=== PATIENT | female | born 2000 | race Hispanic/Latino ===

== ENCOUNTER 2018-02-04 15:50 | Emergency (ER) | payer BC, OTHER ==
[2018-02-04] MEDS ORDERED: LIDOCAINE JELLY 2%- 5 ML TUBE ONE (16:56)
[2018-02-04] MEDS ORDERED: LIDOCAINE 1% 20 ML MDV ONE (16:56)
--- NOTE | 2018-02-04 18:20 | EDPHYS ---
Physician Documentation [facility] Name: Camille Mars Age: 17 yrs Sex: Female : 2000 Arrival Date: 02/04/2018 Time: 15:53 Bed 18 Private MD: Darleen Vanegas L ED Physician Eugenio Marrero HPI: 02/04 18:17 This 17 yrs old Female presents to ER via Ambulatory with complaints of NEEDLE snw IN FINGER. 18:17 The patient or guardian reports a puncture wound, from a needle. The complaints affect snw the dorsal aspect of distal phalanx of left index finger. Context: The problem was sustained at home, resulted from sewing. Onset: The symptoms/episode began/occurred suddenly, just prior to arrival. Associated signs and symptoms: The patient has no apparent associated signs or symptoms. Severity of symptoms: At their worst the symptoms were moderate. The patient has not experienced similar symptoms in the past. 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 - Social history:: Smoking status: Patient/guardian denies using tobacco. - Ebola Screening: : No symptoms or risks identified at this time. ROS: 18:17 Constitutional: Negative for fever, chills, and weight loss, Eyes: Negative for injury, snw pain, redness, and discharge, ENT: Negative for injury, pain, and discharge, Neck: Negative for injury, pain, and swelling, Cardiovascular: Negative for chest pain, palpitations, and edema, Respiratory: Negative for shortness of breath, cough, wheezing, and pleuritic chest pain, Abdomen/GI: Negative for abdominal pain, nausea, vomiting, diarrhea, and constipation, Back: Negative for injury and pain, : Negative for injury, bleeding, discharge, and swelling, MS/Extremity: Negative for injury and deformity, Neuro: Negative for headache, weakness, numbness, tingling, and seizure. 18:17 Skin: Positive for puncture, of the dorsal aspect of distal phalanx of left index finger. Exam: 18:16 Constitutional: This is a well developed, well nourished patient who is awake, alert, snw and in no acute distress. Head/Face: Normocephalic, atraumatic. Eyes: Pupils equal round and reactive to light, extra-ocular motions intact. Lids and lashes normal. Conjunctiva and sclera are non-icteric and not injected. Cornea within normal limits. Periorbital areas with no swelling, redness, or edema. ENT: Nares patent. No nasal discharge, no septal abnormalities noted. Tympanic membranes are normal and external auditory canals are clear. Oropharynx with no redness, swelling, or masses, exudates, or evidence of obstruction, uvula midline. Mucous membranes moist. Neck: Trachea midline, no thyromegaly or masses palpated, and no cervical lymphadenopathy. Supple, full range of motion without nuchal rigidity, or vertebral point tenderness. No Meningismus. Chest/axilla: Normal chest wall appearance and motion. Nontender with no deformity. No lesions are appreciated. Cardiovascular: Regular rate and rhythm with a normal S1 and S2. No gallops, murmurs, or rubs. Normal PMI, no JVD. No pulse deficits. Respiratory: Lungs have equal breath sounds bilaterally, clear to auscultation and percussion. No rales, rhonchi or wheezes noted. No increased work of breathing, no retractions or nasal flaring. 18:16 Back: No spinal tenderness. No costovertebral tenderness. Full range of motion. MS/ Extremity: Pulses equal, no cyanosis. Neurovascular intact. Full, normal range of motion. Neuro: Awake and alert, GCS 15, oriented to person, place, time, and situation. Cranial nerves II-XII grossly intact. Motor strength 5/5 in all extremities. Sensory grossly intact. Cerebellar exam normal. Normal gait. 18:16 Abdomen/GI: Inspection: gravid appearance, is noted, Bowel sounds: normal. 18:16 Skin: Appearance: normal except for affected area, injury, puncture(s), that are deep, of the dorsal aspect of distal phalanx of left index finger, + foreign body. Vital Signs: 16:03 BP 126 / 79; Pulse 96; Resp 16; Temp 98.2; Pulse Ox 99% on R/A; Weight 77.11 kg; Height aj 5 ft. 6 in. (167.64 cm); 18:00 BP 122 / 76; Pulse 88; Resp 16; Pulse Ox 100% on R/A; hb 16:03 Body Mass Index 27.44 (77.11 kg, 167.64 cm) aj Procedures: 18:14 Foreign Body Removal: sewing needle, from the left dorsal aspect of distal phalanx of snw left index finger, by using a hemostat, Dressinx4s were used to dress the wound, The patient tolerated the removal well, x-ray without fb finding post removal, US per Dr. Marrero without foreign body finding. MDM: 16:16 Patient medically screened. snw 19:09 Data reviewed: vital signs, nurses notes. Data interpreted: Pulse oximetry: on room air snw is 100 %. Interpretation: normal. Counseling: I had a detailed discussion with the patient and/or guardian regarding: the historical points, exam findings, and any diagnostic results supporting the discharge/admit diagnosis, radiology results, the need for outpatient follow up, to return to the emergency department if symptoms worsen or persist or if there are any questions or concerns that arise at home. Special discussion: I discussed in detail with the patient the higher chance of wound infection based on his presenting history. Based on the history and exam findings, there is no indication for further emergent testing or inpatient evaluation. I discussed with the patient/guardian the need to see the OB Gyne specialist for further evaluation of the symptoms. I discussed with the patient/guardian the need to see the primary care provider for further evaluation of the symptoms. 02/04 17:37 Order name: Hand Left 2 View XRAY em1 Administered Medications: No medications were administered Disposition: 18:57 Co-signature as Attending Physician, Eugenio Marrero MD. rn Disposition: 02/04/18 18:19 Discharged to Home. Impression: Puncture wound with foreign body of finger without damage to nail. - Condition is Stable. - Discharge Instructions: Elastic Bandage and RICE, Medicines During , Puncture Wound. - Medication Reconciliation Form, Thank You Letter, Antibiotic Education, Prescription Opioid Use form. - Follow up: Private Physician; When: 2 - 3 days; Reason: Recheck today's complaints, Continuance of care, Re-evaluation by your physician. Follow up: Emergency Department; When: As needed; Reason: Worsening of condition. Signatures: Dispatcher [employer] Leann Jones, RN RN Soila Lester, LEAN SIX SIGMA SENIOR SPECIALIST-C LEAN SIX SIGMA SENIOR SPECIALIST-Csnw Eugenio Marrero MD MD rn Baxter, Heather, RN RN hb Corrections: (The following items were deleted from the chart) 18:51 18:19 02/04/2018 18:19 Discharged to Home. Impression: Puncture wound with foreign body hb of finger without damage to nail. Condition is Stable. Forms are Medication Reconciliation Form, Thank You Letter, Antibiotic Education, Prescription Opioid Use. Follow up: Private Physician; When: 2 - 3 days; Reason: Recheck today's complaints, Continuance of care, Re-evaluation by your physician. Follow up: Emergency Department; When: As needed; Reason: Worsening of condition. snw
--- NOTE | 2018-02-04 18:20 | ER ---
Nurse's Notes [facility] Name: Camille Mars Age: 17 yrs Sex: Female : 2000 Arrival Date: 02/04/2018 Time: 15:53 Bed 18 Private MD: Darlene Vanegas L Diagnosis: Puncture wound with foreign body of finger without damage to nail Presentation: 02/04 16:02 Presenting complaint: Patient states: Needle in left 2 nd digit from embroidering aj machine, just CASING SOAKER. Transition of care: patient was not received from another setting of care. Onset of symptoms was February 04, 2018. Care prior to arrival: None. 16:02 Method Of Arrival: Ambulatory aj 16:02 Acuity: LALO 4 aj 17:20 Initial Sepsis Screen: Does the patient meet any 2 criteria? No. Patient's initial hb sepsis screen is negative. Does the patient have a suspected source of infection? No. Patient's initial sepsis screen is negative. 17:20 Risk Assessment: Do you want to hurt yourself or someone else? Patient reports no hb desire to harm self or others. Triage Assessment: 16:03 General: Appears in no apparent distress. comfortable, Behavior is calm, cooperative, aj appropriate for age. Pain: Complains of pain in dorsal aspect of distal phalanx of left index finger and left index fingernail. Neuro: Level of Consciousness is awake, alert, obeys commands, Oriented to person, place, time, situation, Appropriate for age. Respiratory: Airway is patent Respiratory effort is even, unlabored, Respiratory pattern is regular, symmetrical. Derm: Skin is intact, is healthy with good turgor, Skin is pink, warm \T\ dry. normal. 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 - Social history:: Smoking status: Patient/guardian denies using tobacco. - Ebola Screening: : No symptoms or risks identified at this time. Screenin:30 Abuse screen: Denies threats or abuse. Denies injuries from another. Nutritional hb screening: No deficits noted. Tuberculosis screening: No symptoms or risk factors identified. Fall Risk None identified. Assessment: 16:30 General: Appears in no apparent distress. uncomfortable, Behavior is calm, cooperative. hb Pain: Pain currently is 4 out of 10 on a pain scale. Neuro: Level of Consciousness is awake, alert, obeys commands, Oriented to person, place, time, situation. Cardiovascular: Capillary refill < 3 seconds Patient's skin is warm and dry. Respiratory: Airway is patent Trachea midline Respiratory effort is even, unlabored, Respiratory pattern is regular, symmetrical. Injury Description: Foreign body is located dorsal aspect of distal phalanx of left index finger is needle was sustained 30-60 minutes ago. 17:15 Reassessment: Patient appears in no apparent distress at this time. No changes from previously documented assessment. Patient and/or family updated on plan of care and expected duration. Pain level reassessed. Patient is alert, oriented x 3, equal unlabored respirations, skin warm/dry/pink. 17:30 Reassessment: JAY Cm at bedside for FB removal. hb 18:02 Reassessment: Dr. Marrero at bedside for US of finger. hb 18:15 Reassessment: Patient appears in no apparent distress at this time. Patient and/or hb family updated on plan of care and expected duration. Pain level reassessed. Patient is alert, oriented x 3, equal unlabored respirations, skin warm/dry/pink. Vital Signs: 16:03 BP 126 / 79; Pulse 96; Resp 16; Temp 98.2; Pulse Ox 99% on R/A; Weight 77.11 kg; Height aj 5 ft. 6 in. (167.64 cm); 18:00 BP 122 / 76; Pulse 88; Resp 16; Pulse Ox 100% on R/A; hb 16:03 Body Mass Index 27.44 (77.11 kg, 167.64 cm) ED Course: 15:53 Patient arrived in ED. sb2 15:53 Soila Smith FNP-C [facility]. snw 15:53 Eugenio Marrero MD is Attending Physician. snw 15:53 Darlene Vanegas MD is Private Physician. sb2 16:02 Triage completed. aj 16:03 Arm band placed on left wrist. Patient placed in an exam room. aj 16:14 Gavin, Della, RN is Primary Nurse. hb 17:00 Patient has correct armband on for positive identification. Bed in low position. Call light in reach. 17:49 X-ray completed. Portable x-ray completed in exam room. Patient tolerated procedure ml well. 17:50 Hand Left 2 View XRAY In Process Unspecified. EDMS Administered Medications: No medications were administered Outcome: 18:19 Discharge ordered by . snw 18:51 Patient left the ED. Signatures: Dispatcher [employer] EDMS Leann Padilla, RN RN Soila Lester, AUDIO VISUAL ARTS DIRECTOR-C AUDIO VISUAL ARTS DIRECTOR-Csnw [place] Juares Heather, RN RN Sherie Blanco sb2
[2018-02-04 18:58] VITALS: TEMP 98.2
[2018-02-04 18:59] VITALS: BP 122/76; O2SAT 100
--- NOTE | 2018-02-04 19:54 | RAD REPORT ---
EXAM DESCRIPTION: RAD - Hand Left 2 View - 02/04/2018 5:51 pm CLINICAL HISTORY: Puncture wound left second digit COMPARISON: None. FINDINGS: No fracture is identified. There is no dislocation or periosteal reaction noted. No foreig n body or other soft tissue abnormality. IMPRESSION: No foreign body. No bone abnormality.
== END 2018-02-04 18:51 | disposition home or self-care (01) ==
LOC: ER 15:50
DX: S61.241A Puncture wound with foreign body of left index finger without damage to nail, initial encounter (principal); W26.8XXA Contact with other sharp object(s), not elsewhere classified, initial encounter; W45.8XXA Other foreign body or object entering through skin, initial encounter; Y93.D2 Activity, sewing; Y92.9 Unspecified place or not applicable
CPT/HCPCS: 99282

== ENCOUNTER 2018-06-19 00:06 | Inpatient (IN) | payer BC, OTHER ==
[2018-06-19] MEDS ORDERED: Ringers Lactate 1,000 ML IV PRN (00:15)
[2018-06-19] MEDS ORDERED: miSOPROStol 100 MCG TAB PO ONE ×2 (00:19→06:45)
[2018-06-19] MEDS ORDERED: Ringers Lactate 1,000 ML IV SCH (01:00)
[2018-06-19 01:55] VITALS: BMI 29.9
[2018-06-19 02:14] LABS: RPR Titer ND
[2018-06-19 02:21] LABS: Absolute Lymphocytes (CBC) 1.9 K/uL (0.7-4.9); Absolute Monocytes 0.9 K/uL (0.1-1.3); Absolute Neutrophil 8.1 K/uL (1.8-8.0); Basophils % 0.3 % (0-1.3); Eosinophils % 0.6 % (0-4.4); Hematocrit 38.1 % (36.0-45.0); Lymphocytes % 17.7 % (15.3-44.8); MCH 31.3 pg (27.0-35.0); MCV 88.4 fL (80-100); MPV 10.4 fL (7.6-11.3); Monocytes % 8.1 % (3.3-12.3); RBC Red Blood Cell Count 4.31 M/uL (3.86-4.86)
[2018-06-19 02:27] LABS: Urine Appearance CLEAR; Urine Bilirubin NEGATIVE (NEG); Urine Blood NEGATIVE (NEG); Urine Color YELLOW; Urine Glucose NEGATIVE (NEG); Urine Protein NEGATIVE (NEG); Urine Specific Gravity <=1.005 (1.005-1.030); Urine Urobilinogen 0.2 mg/dL (0.2-1.0); Urine pH 6.5 (5.0-7.0)
[2018-06-19 02:28] LABS: Urine Microscopic Reflex ORDER UMIC
[2018-06-19 03:24] LABS: Urine Bacteria <20 /HPF (<20); Urine Culture Reflex Order REFLEXED; Urine RBC NONE SEEN /HPF (NONE SEEN)
[2018-06-19] MEDS ORDERED: miSOPROStol 100 MCG TAB ONE ×2 (07:01→15:08)
[2018-06-19] MEDS ORDERED: miSOPROStol 100 MCG TAB PO PRN ×2 (07:15→15:00)
[2018-06-19] MEDS ORDERED: INFLUENZA VACCINE (for 3y+) 0.5 ML DOSE IMVAC ONE (08:00)
--- NOTE | 2018-06-19 09:18 | RAD REPORT ---
EXAM DESCRIPTION: US - OB Limited - 06/19/2018 12:49 am CLINICAL HISTORY: . FINDINGS: A limited examination was performed to assess for presentation. Presentation is cephalic. Placenta anterior. It is not low lying. Cardiac activity 145 beats per minute IMPRESSION: Cephalic presentation
--- NOTE | 2018-06-19 10:43 | PREOPHP ---
Date of Admission: 06/19/2018 A 17-year-old primigravida, 39 weeks, Rh positive, immune to Rubella. Positive beta strep screen. T he patient is requesting induction. Pros and cons of this thoroughly discussed. The patient knows t hat with an unfavorable cervix the chance for prolonged labor and is higher. She was advise d to wait till Friday, but because of her personal discomfort and family pressures, she wants to proc eed today even though she knows the risk for is higher. Vital signs are all stable. Baby l ooks good. She only had 1 dose of Cytotec, was supposed to have another dose an hour ago, but that w as not given, she is now given. Her cervix is still 1 cm, very posterior, baby is well applied. The re was a flat plate ordered on admission to make sure the baby is vertex. Labor talk given, but we h ave a long way to go before we can get this baby. SARA/LUIS Voice ID: [id number]
--- NOTE | 2018-06-19 13:25 | PN ---
Just had her third dose of Cytotec 50 mcg. She is really not responding to the medication thus far. Having contractions regularly, but they do not seem to be uncomfortable. Cervix has shown no change within the last half hour when the nurse checked her. I will check her again in about an hour or ho ur and a half. Options given including discontinuing IV and sending her home since the bag of water has not broken and she does not seem to be in labor, re-evaluate the situation on Friday. The other option would be to continue until the 6 total doses of Cytotec has been given, wait 1 or 2 hours afte r that and then begin the oxytocin that would produce through the night until tomorrow and we would h ave the baby some time tomorrow. The patient has expressed desire to have the baby during this hospi talization, at this point does not appear to want to go home. She will discuss with her family and l et us know in the next couple of hours what she wants to do. SARA/LUIS Voice ID: [id number] Report ID: [id number]
--- NOTE | 2018-06-19 16:11 | PN ---
The patient is mariama regularly now, says they are picking up in intensity, but still not extrem tapan painful. Pelvic exam shows the cervix is much more anterior, very soft, but still not open enoug h to allow membrane rupture. Again, patient counseled. We have decided to go with the full protocol of 6 total doses of Cytotec followed by the oxytocin. That means we probably will not reasonably ge t this baby delivered until some time tomorrow, but the patient says she is okay with that. She is s lightly hungry, so we will probably let her have some broth or popsicles, some hard candy that dissol ves, and fruit drinks, but she knows she really cannot be allowed to eat anything solid until after t he delivery. SARA/LUIS Voice ID: [id number] Report ID: [id number]
[2018-06-19] MEDS ORDERED: PENICILLIN 5 MU in NA CHLORIDE 0.9% 100 ML IV ONE (19:00)
[2018-06-19] MEDS ORDERED: OXYTOCIN/LR 20 UNIT/1,000 ML BAG IV SCH (19:00)
[2018-06-19 22:26] LABS: RPR (Rapid Plasma Reagin) NON-REACT (NON-REACT)
[2018-06-19] MEDS ORDERED: PENICILLIN 2.5 MU in NA CHLORIDE 0.9% 100 ML IV SCH (23:00)
[2018-06-19] MEDS ORDERED: BUTORPHANOL 1 MG/ML INJ IV PRN (23:05)
[2018-06-19] MEDS ORDERED: METHYLERGONOVINE 0.2MG/ML AMP IM PRN (23:05)
[2018-06-19] MEDS ORDERED: MEPERIDINE HCL 25 MG/0.5 ML IV PRN (23:05)
[2018-06-19] MEDS ORDERED: CARBOPROST TROME 250 MCG/ML IM PRN (23:05)
[2018-06-19] MEDS ORDERED: PROMETHAZINE 25 MG/ML VIAL IM PRN (23:05)
[2018-06-19] MEDS ORDERED: MIDAZOLAM HCL 2 MG/2 ML INJ IV PRN (23:05)
[2018-06-20] MEDS ORDERED: PENICILLIN G POT 5 MU/100 ML BAG IV ONE (00:10)
[2018-06-20] MEDS ORDERED: PENICILLIN G POT 5 MU/VIAL IV ONE (00:10)
[2018-06-20] MEDS ORDERED: NA CHLORIDE 0.9% 200 ML IV ONE (00:11)
[2018-06-20] MEDS ORDERED: NA CIT/CITRIC AC 30 ML ORAL UDC PO ONE (06:59)
[2018-06-20] MEDS ORDERED: FAMOTIDINE 20 MG/2 ML VIAL IV ONE (07:00)
[2018-06-20] MEDS ORDERED: METOCLOPRAMIDE 10 MG/2mL INJ IV ONE (07:00)
[2018-06-20] MEDS ORDERED: CLINDAMYCIN 900MG/D5W 900 MG/50 ML BAG IV ONE ×2 (07:24→07:46)
[2018-06-20] MEDS ORDERED: LIDOCAINE 2% MPF 5 ML VIAL ONE (07:43)
[2018-06-20] MEDS ORDERED: BUPIVACAINE 0.75% (PF) 2 ML SP ONE (07:43)
[2018-06-20] MEDS ORDERED: MORPHINE SULFATE/PF 1 MG/ML (10 ML AMP) ONE (07:43)
[2018-06-20] MEDS ORDERED: EPHEDRINE SULF 50 MG/ML SYR ONE (08:07)
[2018-06-20] MEDS ORDERED: OXYTOCIN 10 UNIT/ML ML IV ONE ×2 (08:09→08:23)
[2018-06-20] MEDS ORDERED: ONDANSETRON HCL 40 MG/20 ML VIAL ONE (08:26)
[2018-06-20] MEDS ORDERED: MIDAZOLAM HCL 2 MG/2 ML INJ ONE (08:30)
[2018-06-20] MEDS ORDERED: ONDANSETRON 4 MG (ODT) TAB PO PRN (08:52)
[2018-06-20] MEDS ORDERED: ONDANSETRON 4 MG/2 ML VIAL IV PRN (08:52)
[2018-06-20] MEDS ORDERED: KETOROLAC 30 MG/ML INJ IM PRN (08:52)
[2018-06-20] MEDS ORDERED: BISACODYL 10 MG RECTAL SUPP RECT PRN (08:52)
[2018-06-20] MEDS ORDERED: ACETAMINOPHEN 500 MG TAB PO PRN ×2 (08:52)
[2018-06-20] MEDS ORDERED: Oxycodone HCl/Acetaminophen 1 TAB TAB PO PRN ×2 (08:52)
[2018-06-20] MEDS ORDERED: DIPHENHYDRAMINE 25 MG TAB/CAP PO PRN (08:52)
[2018-06-20] MEDS ORDERED: KETOROLAC 30 MG/ML INJ IV PRN (08:52)
[2018-06-20] MEDS ORDERED: D5LR 1,000 ML with OXYTOCIN 20 UNIT IV SCH ×2 (09:00)
[2018-06-20] MEDS ORDERED: OXYTOCIN/LR 20 UNIT/1,000 ML BAG IV SCH (09:00)
[2018-06-20] MEDS ORDERED: CLINDAMYCIN INJ 900 MG in NA CHLORIDE 0.9% 50 ML IV SCH (09:00)
[2018-06-20] MEDS: METHYLERGONOVINE 0.2 MG TAB PO PRN ×4 (10:15→22:55)
--- NOTE | 2018-06-20 11:42 | PN ---
A 17-year-old primigravida. After 4 doses of Cytotec at 50 mcg and Pitocin now at 24 milliunits for several hours, the patient showed no cervical change. She is having contractions sometimes on a regu lar basis and sometimes scattered. Baby looks good. Vital signs are all stable. Cervix is still ba sically unchanged as stated. Options discussed including continuing Pitocin until 12 this afternoon and see what is happening, 3 or 4 this afternoon and then make any decision. Even stopping all medic ations, withdrawing the IV, and sending her home has been discussed. The patient wishes to proceed o n with section. Infection; blood loss; anesthetic complications; injury to bladder, bowel, ureter; postoperative complications; clots in legs; pneumonia were discussed. The patient knows full y well this does not constitute all the possible problems during or following surgery. Her physical exam is basically unchanged. We will call Dr. Guaman and technician assistant surgeon and all surgical crew. Obv iously, it is not an emergency, so we will be expeditious, but cautious and proceed on with during the next 1 to 2 hours. SARA/LUIS Voice ID: [id number] Report ID: [id number]
--- NOTE | 2018-06-20 13:33 | OP ---
Surgeon: Bernardo Evangelista MD Indications: A 17-year-old primigravida, 39 weeks and 1 day at time of delivery. Failure to progres s in labor. Full preoperative counseling concerning procedure and possible complications, including infection, blood loss, anesthetic complications, injury to bladder, bowel, ureter, postoperative comp lications, clots in legs, and pneumonia. The patient knows fully well, this does not constitute all the possible problems that could occur during or following surgery. Anesthesia: Dr. Guaman, spinal block anesthesia. Neurology Director Surgeon: Dr. Pitt. Procedure In Detail: After patient was prepped and draped, a timeout was performed. A Pfannenstiel incision was created. Incision was carried to the fascia. The fascia was incised and incision noreen ed transversely bilaterally. Anterior fascial plane was developed with both blunt and sharp dissecti on. Small perforating vessels were fulgurated. Rectus muscle was . Peritoneum entered glen ntly. Low transverse uterine incision created. A 7 pound, 11 ounce female was delivered without dif ficulties. Apgars 9 and 9. Slightly deflexed head position. Placenta removed manually. Uterus kareem ared of clot and blood and exteriorized. Cervical os was dilated with ring clamp. Uterus closed wit h a running-locked stitch of 1 chromic followed by an imbricating stitch along most of the incision l ine with 0 chromic. The gutters were cleared of clot and blood. Uterus was replaced in the peritone al cavity. It was noted the patient had a very prominent sacral promontory. Ten units of Pitocin colon d been injected into the uterus after delivery of the baby, as well as 0.2 mg of Methergine IM. Mild to moderate hypertonus. Estimated blood loss 5665-5534 cc. The patient quite stable. Tolerated al l procedures well. The rectus muscles were reapproximated with 0 Vicryl. Then the fascia was closed with 1 Vicryl running from either angle to the midline. Subcutaneous tissue was closed with 3-0 jass in. Absorbable hi placed and then metal hi. The patient had been given 900 g of Cleocin p rior to the procedure for prophylaxis. Tolerated all procedures well and transferred back to her [facility] in good condition. Final Diagnoses: 1.Term intrauterine 39 weeks 1 day, failure to progress in labor. 2.Spinal block anesthesia. 3.Mild to moderate hypertonus. Prominent sacral promontory. 4.Penicillin prophylaxis during the labor. SARA/LUIS Voice ID: [id number] Report ID: [id number]
[2018-06-21] MEDS: IBUPROFEN 200 MG TAB PO PRN ×2 (07:30→19:15)
[2018-06-21] MEDS ORDERED: MAGNESIUM HYDROXIDE 8% 30 ML PO PRN (08:52)
--- NOTE | 2018-06-21 12:19 | PN ---
A 17-year-old primigravida. Postoperatively, the patient has done quite well. H and H actually went up. I think the patient is mildly dehydrated. This was discussed with the patient. She will push p.o. fluids today. We will discontinue Vieira and IV, begin ambulation. Full postoperative talk give n. If the patient does well, she will go home tomorrow morning. We went over dismissal instructions . We will go over those again tomorrow. She had a little pruritus, little nausea, but no headaches. She will get her flu shot before she leaves the hospital. She has had her Tdap immunization. Angie g quite well. Anticipate dismissal tomorrow. SARA/LUIS Voice ID: [id number] Report ID: [id number]
[2018-06-22 08:23] VITALS: BP 112/63; TEMP 97.6
[2018-06-22] MEDS ORDERED: INFLUENZA VACCINE (for 3y+) 0.5 ML DOSE IMVAC ONE (10:00)
--- NOTE | 2018-06-23 05:54 | DS ---
Date of Discharge: 06/22/2018 Hospital Course: A 17-year-old primigravida, 39 weeks and 1 day on delivery. Failure to progress in labor. Primary section, low transverse cervical, spinal block anesthesia, 7 pounds 11 ounc e female. Apgars 9 and 9. Estimated blood loss 1100 and 1200 cc. Mild uterine hypotonus, 0.2 mg of Methergine IM as well as 10 units of Pitocin into the myometrium. Noted to have deflection of the b fiona's head-baby in deflexed position and prominent sacral promontory. Received penicillin prophylaxi s during the labor and postoperatively afebrile, ambulating, voiding. Lochia is normal. Dismissed, return to my office later this week for staple removal. To report any temperature elevati on of 100 degrees or greater, severe pain, heavy bleeding, or any other type of abnormalities. She h as had her Tdap shot, will be offered flu shot before she leaves. Dismissed with tramadol, although she may elect to take Motrin instead. No post spinal block problems. Final Diagnoses: Term intrauterine at 39 weeks 1 day, primary section, mild-to-mo derate uterine hypotonus. Baby's head in deflexed position, penicillin prophylaxis. NBC/MODL Voice ID: [id number] Report ID: [id number]
[2018-06-23 20:13] LABS: HBsAG Nonreactive (Nonreactive)
== END 2018-06-22 10:30 | disposition home or self-care (01) | DRG 788 ==
LOC: 2ND-WC 00:06
PROVIDERS: ADMIT Specialist; ATTEND Specialist
PROC: 3E033VJ Introduction of Other Hormone into Peripheral Vein, Percutaneous Approach (ICD-10-PCS; 2018-06-20)
PROC: 3E0R3BZ Introduction of Anesthetic Agent into Spinal Canal, Percutaneous Approach (ICD-10-PCS; 2018-06-20)
PROC: 10D00Z1 Extraction of Products of Conception, Low, Open Approach (ICD-10-PCS; principal; 2018-06-20 08:00)
DX: O61.0 Failed medical induction of labor (principal); O66.40 Failed trial of labor, unspecified; O62.4 Hypertonic, incoordinate, and prolonged uterine contractions; Z3A.39 39 weeks gestation of pregnancy; Z37.0 Single live birth; O62.0 Primary inadequate contractions; O32.8XX0 Maternal care for other malpresentation of fetus, not applicable or unspecified; Z23 Encounter for immunization
CPT/HCPCS: 36415; 76815; 81003; 81015; 85014; 85025; 86592; 86850; 86900; 86901; 87086; 87088; 87340; 88307; J2210; J2250; J2405; J2550; J2590; J2765; Q2035

== ENCOUNTER 2018-09-08 17:52 | Emergency (ER) | payer BC, OTHER ==
[2018-09-08 20:37] LABS: Absolute Lymphocytes (CBC) 1.2 K/uL (0.7-4.9); Absolute Monocytes 0.8 K/uL (0.1-1.3); Absolute Neutrophil 7.4 K/uL (1.8-8.0); Basophils % 0.4 % (0-1.3); Eosinophils % 4.6 % (0-4.4); Hematocrit 42.8 % (36.0-45.0); Lymphocytes % 12.3 % (15.3-44.8); MPV 9.9 fL (7.6-11.3); Monocytes % 8.5 % (3.3-12.3); RBC Red Blood Cell Count 4.95 M/uL (3.86-4.86)
--- NOTE | 2018-09-08 20:57 | EDPHYS ---
Physician Documentation [facility] Name: Camille Mars Age: 17 yrs Sex: Female : 2000 Arrival Date: 09/08/2018 Time: 17:56 Bed 15 Private MD: ED Physician Alverto Murray HPI: 09/08 19:29 This 17 yrs old Female presents to ER via Ambulatory with complaints of Sore pkl Throat, Body Aches,Stuffy Nose. 19:29 The patient or guardian reports running nose. Onset: The symptoms/episode pkl began/occurred 2 day(s) ago. Associated signs and symptoms: Pertinent positives: sore throat. [employer]: 18:08 LMP N/A - aj Historical: - Allergies: 18:08 Rocephin; aj - Home Meds: 18:08 Vitamin Oral [Active]; aj - PMHx: 18:08 None; aj - PSHx: 18:08 ; aj - Immunization history:: Adult Immunizations up to date, Flu vaccine is up to date. - Social history:: Smoking status: Patient/guardian denies using tobacco. - Ebola Screening: : Patient negative for fever greater than or equal to 101.5 degrees Fahrenheit, and additional compatible Ebola Virus Disease symptoms Patient denies exposure to infectious person Patient denies travel to an Ebola-affected area in the 21 days before illness onset No symptoms or risks identified at this time. ROS: 19:29 Eyes: Negative for injury, pain, redness, and discharge. pkl 19:29 ENT: Positive for nasal discharge, sinus congestion, sore throat. 19:29 Neck: Negative for stiffness. 19:29 Cardiovascular: Negative for chest pain. 19:29 Respiratory: Negative for shortness of breath. 19:29 Abdomen/GI: Negative for abdominal pain, nausea, vomiting, and diarrhea. 19:29 Back: Negative for acute changes. 19:29 : Negative for urinary symptoms. 19:29 MS/extremity: Negative for acute changes. 19:29 Skin: Negative for rash. 19:29 Neuro: Negative for altered mental status. Exam: 19:29 Head/Face: Normocephalic, atraumatic. Eyes: Pupils equal round and reactive to light, pkl extra-ocular motions intact. Lids and lashes normal. Conjunctiva and sclera are non-icteric and not injected. Cornea within normal limits. Periorbital areas with no swelling, redness, or edema. 19:29 ENT: Posterior pharynx: erythema, that is mild. 19:29 Neck: Exam negative for nuchal rigidity. 19:29 Chest/axilla: Exam negative for acute changes. 19:29 Cardiovascular: Rate: tachycardic, actual rate is 109 bpm, Rhythm: regular. 19:29 Respiratory: the patient does not display signs of respiratory distress, Respirations: normal, Breath sounds: are clear throughout. 19:29 Abdomen/GI: Bowel sounds: normal, Palpation: abdomen is soft and non-tender, in all quadrants. 19:29 Back: Exam negative for acute changes. 19:29 : Exam negative for acute changes. 19:29 Musculoskeletal/extremity: Exam is negative for acute changes. 19:29 Skin: Exam negative for rash. 19:29 Neuro: Orientation: is normal, Cranial nerves: grossly normal, Motor: is normal. Vital Signs: 18:08 BP 122 / 73; Pulse 109; Resp 18; Temp 98.6; Pulse Ox 99% on R/A; Weight 57.15 kg; aj Height 5 ft. 3 in. (160.02 cm); 19:30 BP 123 / 67; Pulse 92; Resp 18 S; Pulse Ox 99% on R/A; cc3 20:11 BP 121 / 78; Pulse 89; Resp 17 S; Pulse Ox 99% on R/A; cc3 21:15 BP 120 / 68; Pulse 88; Resp 18; Pulse Ox 99% ; ea 18:08 Body Mass Index 22.32 (57.15 kg, 160.02 cm) MDM: 19:22 Patient medically screened. pkl 20:54 Data reviewed: vital signs, nurses notes, lab test result(s). pkl 09/08 18:07 Order name: Strep 09/08 18:07 Order name: Flu; Complete Time: 19:28 09/08 18:08 Order name: Group A Streptococcus Rapid Sc; Complete Time: 19:28 EDGA 09/08 18:55 Order name: Throat Culture [facility] 09/08 19:28 Order name: CBC with Diff; Complete Time: 20:50 pkl Administered Medications: No medications were administered Disposition: 09/08/18 20:56 Discharged to Home. Impression: Upper respiratory infection. - Condition is Stable. - Prescriptions for Zithromax Z- José 250 mg Oral Tablet - take 1 tablet by ORAL route as directed for 5 days Day 1 - take two (2) tablets one time. Day 2, 3, 4 , 5 take one (1) tablet once daily.; 6 tablet. Guaifenesin- DM 10-100 mg/5 mL Oral Liquid - take 10 milliliter by ORAL route every 8 hours As needed as needed; 120 milliliter. - Medication Reconciliation Form, Thank You Letter, Antibiotic Education, Prescription Opioid Use form. - Follow up: Private Physician; When: 2 - 3 days; Reason: Re-evaluation by your physician. - Problem is new. - Symptoms are unchanged. Signatures: Dispatcher [employer] EDLeann Franco RN RN Alverto Cardoso MD MD pkYamel Au RN RN ea Corrections: (The following items were deleted from the chart) 21:30 20:56 09/08/2018 20:56 Discharged to Home. Impression: Upper respiratory infection. ea Condition is Stable. Forms are Medication Reconciliation Form, Thank You Letter, Antibiotic Education, Prescription Opioid Use. Follow up: Private Physician; When: 2 - 3 days; Reason: Re-evaluation by your physician. Problem is new. Symptoms are unchanged. pkl
--- NOTE | 2018-09-08 20:57 | ER ---
Nurse's Notes [facility] Name: Camille Mars Age: 17 yrs Sex: Female : 2000 Arrival Date: 09/08/2018 Time: 17:56 Bed 15 Private MD: Diagnosis: Upper respiratory infection Presentation: 09/08 18:07 Presenting complaint: Patient states: Sore throat, runny nose, cough for 3 days. Denies aj fever. Transition of care: patient was not received from another setting of care. Onset of symptoms was September 05, 2018. Risk Assessment: Do you want to hurt yourself or someone else? Patient reports no desire to harm self or others. Initial Sepsis Screen: Does the patient meet any 2 criteria? No. Patient's initial sepsis screen is negative. Does the patient have a suspected source of infection? No. Patient's initial sepsis screen is negative. Care prior to arrival: None. 18:07 Method Of Arrival: Ambulatory aj 18:07 Acuity: LALO 4 aj Triage Assessment: 18:08 General: Appears in no apparent distress. comfortable, Behavior is calm, cooperative, aj appropriate for age. Pain: Denies pain. EENT: Throat is reddened has patchy exudate Reports nasal congestion nasal discharge pain when swallowing. Respiratory: Reports cough that is Airway is patent Respiratory effort is even, unlabored, Respiratory pattern is regular, symmetrical. GI: No signs and/or symptoms were reported involving the gastrointestinal system. Abdomen is flat, non-distended. Derm: Skin is intact, is healthy with good turgor, Skin is pink, warm \T\ dry. normal. QUALITY CONTROL CHECKER: 18:08 LMP N/A - aj Historical: - Allergies: 18:08 Rocephin; aj - Home Meds: 18:08 Vitamin Oral [Active]; aj - PMHx: 18:08 None; aj - PSHx: 18:08 ; aj - Immunization history:: Adult Immunizations up to date, Flu vaccine is up to date. - Social history:: Smoking status: Patient/guardian denies using tobacco. - Ebola Screening: : Patient negative for fever greater than or equal to 101.5 degrees Fahrenheit, and additional compatible Ebola Virus Disease symptoms Patient denies exposure to infectious person Patient denies travel to an Ebola-affected area in the 21 days before illness onset No symptoms or risks identified at this time. Screenin:00 Abuse screen: Denies threats or abuse. Nutritional screening: No deficits noted. ea Tuberculosis screening: No symptoms or risk factors identified. Fall Risk IV access (20 points). Assessment: 19:22 Respiratory: Airway is patent Respiratory effort is even, unlabored, Respiratory cc3 pattern is regular, symmetrical, Breath sounds are clear bilaterally. 20:25 Reassessment: Patient appears in no apparent distress at this time. Patient and/or cc3 family updated on plan of care and expected duration. Pain level reassessed. Patient is alert, oriented x 3, equal unlabored respirations, skin warm/dry/pink. 21:15 Reassessment: Patient and/or family updated on plan of care and expected duration. Pain ea level reassessed. Patient is alert, oriented x 3, equal unlabored respirations, skin warm/dry/pink. Discharge instruction given to patient, verbalized the understanding of isntruction. Vital Signs: 18:08 BP 122 / 73; Pulse 109; Resp 18; Temp 98.6; Pulse Ox 99% on R/A; Weight 57.15 kg; aj Height 5 ft. 3 in. (160.02 cm); 19:30 BP 123 / 67; Pulse 92; Resp 18 S; Pulse Ox 99% on R/A; cc3 20:11 BP 121 / 78; Pulse 89; Resp 17 S; Pulse Ox 99% on R/A; cc3 21:15 BP 120 / 68; Pulse 88; Resp 18; Pulse Ox 99% ; ea 18:08 Body Mass Index 22.32 (57.15 kg, 160.02 cm) ED Course: 17:56 Patient arrived in ED. rg4 18:08 Triage completed. aj 18:08 Arm band placed on left wrist. Patient placed in waiting room, Patient notified of wait aj time. Labs ordered per protocol. 19:22 Hannah Narayan is Primary Nurse. cc3 19:22 Alverto Murray MD is Attending Physician. pkl 19:22 Patient has correct armband on for positive identification. Bed in low position. Call cc3 light in reach. Side rails up X 1. Pulse ox on. NIBP on. 21:14 No provider procedures requiring assistance completed. ea 21:15 IV discontinued, intact, bleeding controlled, No redness/swelling at site. Pressure ea dressing applied. Administered Medications: No medications were administered Outcome: 20:56 Discharge ordered by . tiara 21:29 Discharged to home ambulatory, with significant other. rahul 21: Condition: improved 21:29 Discharge instructions given to patient, Instructed on discharge instructions, Demonstrated understanding of instructions, follow-up care, medications, Prescriptions given X 3. 21:30 Patient left the ED. rahul Signatures: Leann Padilla RN RN aj Lam, Pin, MD MD pkl Garcia, Rubi rg4 Yamel Miller RN Hannah Smith ea cc3
[2018-09-08 22:08] VITALS: BP 122/73; TEMP 98.6; O2SAT 99
== END 2018-09-08 21:30 | disposition home or self-care (01) ==
LOC: ER 17:52
DX: J06.9 Acute upper respiratory infection, unspecified (principal); Z88.1 Allergy status to other antibiotic agents
CPT/HCPCS: 36415; 85025; 87070; 87081; 87804; 99283